=== PATIENT | male | born 1945 | race Caucasian/White ===

== ENCOUNTER 2016-10-28 10:21 | Emergency (ER) | payer OTHER, MEDICARE ==
[~2016-10-28] VITALS: Ht 172.7 cm; Wt 82.1 kg
[2016-10-28 11:00] LABS: ABSOLUTE BASOPHIL COUNT 0 /CUMM (0.0-0.2); ABSOLUTE EOSINOPHIL COUNT 0.1 /CUMM (0.0-0.7); ABSOLUTE GRANULOCYTE CT 6.5 /CUMM (1.4-6.5); ABSOLUTE LYMPH COUNT 1.9 /CUMM (1.2-3.4); ABSOLUTE MONOCYTE COUNT 0.3 /CUMM (0.10-0.60); BASOPHIL % 0.1 % (0.0-2.0); EOSINOPHIL % 0.7 % (0-5); GRANULOCYTE % 73.8 % (42.2-75.2); HEMATOCRIT 44.9 % (42-52); MEAN CORPUSCULAR HGB 31.2 PG (27.0-31.0); MEAN CORPUSCULAR HGB CONC 33.9 G/DL (33.0-37.0); MEAN CORPUSCULAR VOLUME 92.1 FL (80.0-94.0); MEAN PLATELET VOLUME 9.8 FL (7.4-10.4); PLATELET COUNT 241 /CUMM (130-400); RBC DISTRIBUTION WIDTH 13.1 % (11.5-14.5); RED BLOOD CELL CT 4.87 /CUMM (4.70-6.10); WHITE BLOOD CELL COUNT 8.8 /CUMM (4.8-10.8)
--- NOTE | 2016-10-28 12:32 | MRI REPORT ---
EXAMINATION: MR BRAIN WITHOUT CONTRAST CLINICAL INFORMATION: Double vision. COMPARISON: No relevant prior imaging available. TECHNIQUE: MRI of the brain without contrast was obtained using routine sequences. FINDINGS: There are a few small nonspecific foci of T2 FLAIR signal hyperintensity within the periventricular white matter and a small focus of chronic cortical encephalomalacia involving the left precentral gyrus. There is no acute territorial infarct. A tiny punctate focus of magnetic susceptibility artifact is visualized within the right periventricular white matter that may either represent a focus of mineralization or a chronic microhemorrhage. Intracranial vascular flow voids are grossly maintained. There is no intracranial mass effect midline shift. No abnormal extra-axial collection. Lateral and third ventricles are normal. No hydrocephalus. Midline structures including the cervicomedullary junction are normal. Bone marrow signal intensity is normal. There is trivial mucosal thickening within the ethmoid air cells and the alveolar recess of the left maxillary sinus. Globes and orbits are symmetric. 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 No evidence of acute territorial infarct or hemorrhage.
[2016-10-28 12:57] VITALS: BP 145/80
--- NOTE | 2016-10-28 13:01 | ED GENERAL ADULT ---
See Addendum History of Present Illness General Chief Complaint: General Adult Stated Complaint: SIB MD QUINTERO FOR CT SCAN DUE TO DOUBLE VISION Source: patient Exam Limitations: no limitations Vital Signs & Intake/Output Vital Signs & Intake/Output Vital Signs Date Time Temp Pulse Resp B/P B/P Pulse O2 O2 Flow FiO2 Mean Ox Delivery Rate 10/28 1257 98.4 71 20 145/80 99 Room Air 10/28 1025 97.6 74 18 155/85 98 Room Air Allergies Coded Allergies: No Known Allergies (10/28/16) Reconcile Medications No Known Home Medications Triage Note: 71 YO MALE TO TRIAGE C/O DOUBLE VISION X5 DAYS. C/O DULL ACHE BEHIND EYES. PT STATES HE CALLED DR QUINTERO THIS AM WHO SENT IN HIM FOR CT SCAN. RECENT R ROTATOR CUFF SURGERY ON 10/12. Triage Nurses Notes Reviewed? yes Onset: Abrupt Duration: day(s): (5) Timing: no prior history Injury Environment: home Severity: moderate Severity Numbers: 7 HPI: Patient is a 71-year-old male presenting to the emergency department with a chief complaint of double vision has been going on constantly for the past 5 days. Symptoms improve if he closes one eye, symptoms only present at both eyes are open. Denies any head trauma. No nausea or vomiting. No headaches. Denies any ringing in the ears. No history of visual difficulties in the past. Does not wear daily glasses or contacts. Denies blurred vision. Positive history of ocular migraines. This feels different.NO PAIN IN EYES. No head trauma. Denies any confusion. No weakness or numbness or tingling. Denies any recent fevers or viral illness. (JERRY MCCRARY) Past History Travel History Traveled to [place] past 21 day No Medical History Any Pertinent Medical History? 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 No (JERRY MCCRARY) Review of Systems Review of Systems Constitutional: Reports: no symptoms. Comments Review of systems: See HPI, All other systems negative. Constitutional, no chills fever or weight loss HEENT: no sore throat no congestion Cardiovascular: No chest pain ,palpitation , orthopnea or ankle swelling Skin, no jaundice no rashes Respiratory: No dyspnea cough sputum or hemoptysis GI: No nausea no vomiting : No dysuria No hematuria Muscle skeletal: no back pain, no neck pain, Neurologic: No numbness no confusion Psych: No stress anxiety or depression,. Heme/endocrine: No bruising no bleeding no polyuria or polydipsia Immunology: No splenectomy or history of AIDS (JERRY MCCRARY) Physical Exam Physical Exam General Appearance: well developed/nourished, no apparent distress, alert, awake , comfortable Comments: Well-developed well-nourished person in no acute distress HEENT: extraocular motion intact, no nystagmus. Pupils equally round and reactive to light and accommodation. Peripheral robb intact bilaterally. Nose is atraumatic. External auditory canal and Tympanic membranes clear. Pharynx normal. No swelling or edema. Funduscopic: Somewhat limited secondary to no dilation prior to the exam. No obvious retinal detachment or venous nicking. Neck: Supple, no lymphadenopathy, normal range of motion without pain or tenderness Back: Nontender Cardiovascular: Regular rate and rhythms no murmurs rubs or gallops, normal JVP Respiratory: Chest nontender. No respiratory distress.breath sounds clear to auscultation bilaterally Extremity: No edema, muscular strength is 5 out of 5 in all extremities. Screw Down strength symmetric bilaterally. Neuro: Alert oriented x3, motor sensory normal, cranial nerves II through XII grossly intact. Cerebellar testing is unremarkable. Skin: No appreciable rash on exposed skin, skin is warm and dry. Psych: Mood and affect is normal, memory and judgment is normal. Core Measures ACS in differential dx? No CVA/TIA Diagnosis: No Severe Sepsis Present: No Septic Shock Present: No (JERRY MCCRARY) Progress Differential Diagnoses I considered the following diagnoses in my evaluation of the patient: CVA, TIA, optic chiasm lesion, brain lesion, accommodation issue Plan of Care: Orders Procedure Date/time Status Add-on Test (ER Only) 10/28 1311 Active COMPREHENSIVE METABOLIC PANEL 10/28 1046 Complete WESTERGREN SED RATE 10/28 1029 Complete CBC WITHOUT DIFFERENTIAL 10/28 1029 Complete Laboratory Tests 10/28/16 1046: Anion Gap 9, Estimated GFR > 60, BUN/Creatinine Ratio 25.0, Glucose 94, Calcium 9.9, Total Bilirubin 0.6, AST 30, ALT 46, Alkaline Phosphatase 83, Total Protein 7.3, Albumin 4.3, Globulin 3.0, Albumin/Globulin Ratio 1.4, CBC w Diff NO MAN DIFF REQ, RBC 4.87, MCV 92.1, MCH 31.2 H, RDW 13.1, MPV 9.8, Gran % 73.8, Lymphocytes % 21.8, Monocytes % 3.6, Eosinophils % 0.7, Basophils % 0.1, Absolute Granulocytes 6.5, Absolute Lymphocytes 1.9, Absolute Monocytes 0.3, Absolute Eosinophils 0.1, Absolute Basophils 0, PUBS MCHC 33.9, ESR Westergren 42 H Diagnostic Imaging: Viewed by Me: MRI. Discussed w/RAD: MRI. Radiology Impression: PATIENT: DORIAN LIN PRESENT AGE: 71 PATIENT ACCOUNT NO: [id number] : 43 LOCATION: [facility] ORDERING PHYSICIAN: DIEGO MESA DO (TBS) SERVICE DATE: 10/28/16 EXAM TYPE: MRI - MRI-HEAD W/O PEPE EXAMINATION: MR BRAIN WITHOUT CONTRAST CLINICAL INFORMATION: Double vision. COMPARISON: No relevant prior imaging available. TECHNIQUE: MRI of the brain without contrast was obtained using routine sequences. FINDINGS: There are a few small nonspecific foci of T2 FLAIR signal hyperintensity within the periventricular white matter and a small focus of chronic cortical encephalomalacia involving the left precentral gyrus. There is no acute territorial infarct. A tiny punctate focus of magnetic susceptibility artifact is visualized within the right periventricular white matter that may either represent a focus of mineralization or a chronic microhemorrhage. Intracranial vascular flow voids are grossly maintained. There is no intracranial mass effect midline shift. No abnormal extra-axial collection. Lateral and third ventricles are normal. No hydrocephalus. Midline structures including the cervicomedullary junction are normal. Bone marrow signal intensity is normal. There is trivial mucosal thickening within the ethmoid air cells and the alveolar recess of the left maxillary sinus. Globes and orbits are symmetric. 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 No evidence of acute territorial infarct or hemorrhage. DICTATED BY: JAMEL SPENCER,CHESTER Kumar DATE/TIME DICTATED:10/28/161220 FISH ROE PROCESSOR:LOIDA DATE/TIME TRANSCRIBED:10/28/161220 Initial ED EKG: none Comments: Spoke with patient's primary care physician. Patient on an aspirin regimen daily anyway. PT WILL FOLLOW UP WITH OPTHO AND NEURO. (DWAYNE HAMMOND,JERRY) Departure Departure Time of Disposition: 1353 Disposition: HOME OR SELF CARE Condition: Stable Clinical Impression Primary Impression: Diplopia Referrals: CARLTON SPENCER,MERLINE MANJARREZ MD,MONTSERRAT QUINTERO MD,[place] (PCP/Family) Additional Instructions: Follow-up with neurology call to make an appointment. 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 Continue aspirin regimen daily. Attaches your MRI report. Return for worsening symptoms or concerns. Use patch to help with accommodation. PATIENT: DORIAN LIN PRESENT AGE: 71 PATIENT ACCOUNT NO: [id number] : 43 LOCATION: [facility] ORDERING PHYSICIAN: DIEGO MESA DO (TBS) SERVICE DATE: 10/28/16 EXAM TYPE: MRI - MRI-HEAD W/O PEPE EXAMINATION: MR BRAIN WITHOUT CONTRAST CLINICAL INFORMATION: Double vision. COMPARISON: No relevant prior imaging available. TECHNIQUE: MRI of the brain without contrast was obtained using routine sequences. FINDINGS: There are a few small nonspecific foci of T2 FLAIR signal hyperintensity within the periventricular white matter and a small focus of chronic cortical encephalomalacia involving the left precentral gyrus. There is no acute territorial infarct. A tiny punctate focus of magnetic susceptibility artifact is visualized within the right periventricular white matter that may either represent a focus of mineralization or a chronic microhemorrhage. Intracranial vascular flow voids are grossly maintained. There is no intracranial mass effect midline shift. No abnormal extra-axial collection. Lateral and third ventricles are normal. No hydrocephalus. Midline structures including the cervicomedullary junction are normal. Bone marrow signal intensity is normal. There is trivial mucosal thickening within the ethmoid air cells and the alveolar recess of the left maxillary sinus. Globes and orbits are symmetric. 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 No evidence of acute territorial infarct or hemorrhage. DICTATED BY: CHESTER MCCULLOUGH MD DATE/TIME DICTATED:10/28/161220 FISH ROE PROCESSOR:LOIDA DATE/TIME TRANSCRIBED:10/28/161220 CONFIDENTIAL, DO NOT COPY WITHOUT APPROPRIATE AUTHORIZATION. <Electronically signed in Other Vendor System> SIGNED BY: CHESTER MCCULLOUGH MD 10/28 1232 Departure Forms: Customer Survey General Discharge Information Prescriptions: Current Visit Scripts No Known Home Medications (JERRY MCCRARY) Departure Comments The patient was reviewed with Dr. Sanders. I did not see the patient (DIEGO MESA DO) PA/SPRAY FOAM INSTALLER Co-Sign Statement Statement: ED Attending supervision documentation- X I saw and evaluated the patient. I have also reviewed all the pertinent lab results and diagnostic results. I agree with the findings and the plan of care as documented in the PA's/SPRAY FOAM INSTALLER's documentation. [] I have reviewed the ED Record and agree with the PA's/SPRAY FOAM INSTALLER's documentation. [] Additions or exceptions (if any) to the PAs/SPRAY FOAM INSTALLER's note and plan are summarized below: [] (NEAL SPENCER,JACKIE) Critical Care Note Critical Care Note Critical Care Time: non-applicable (JERRY MCCRARY)
== END 2016-10-28 14:02 ==
LOC: ERH 10:21
PROVIDERS: Emergency Medicine
DX: H53.2 Diplopia (principal)
CPT/HCPCS: 70551; 86317; 87798